=== PATIENT | male | born 1970 | race Caucasian/White ===

== ENCOUNTER 2017-08-07 20:34 | Emergency (ER) | payer OTHER ==
[~2017-08-07] VITALS: Ht 177.8 cm; Wt 88.6 kg
[~2017-08-07 20:34] MED LIST: NAPROSYN500 MG PO; NO HOME MEDICATIONS
[2017-08-07 20:38] VITALS: TEMP 97.6
[2017-08-07] MEDS ORDERED: MUCINEX 60600 MG/TA1 PO (20:46)
[2017-08-07] MEDS ORDERED: MUCINEX D 12001 TER PO (20:47)
[2017-08-07 20:55] LABS: BASO % 0.4 % (0.0-2.0); EOS # 0.2 (0.0-0.7); GRAN # 4.6 (1.4-6.5); GRAN % 57.8 % (42.2-75.2); HEMATOCRIT 43.9 % (42.0-52.0); HEMOGLOBIN 15.6 g/dl (13.5-18.0); LYMPH # 2.6 (1.2-3.4); LYMPH % 32.8 % (20.0-51.0); MEAN CELL VOLUME 91 fl (80.0-100.0); MEAN CORPUSCULAR HEMOGLOBIN 32 pg (27.0-31.0); MEAN CORPUSCULAR HGB CONC 36 g/dl (33.0-37.0); MEAN PLATELET VOLUME 9.5 fl (7.4-10.4); MONO # 0.5 (0.1-0.6); MONO % 6.7 % (1.7-9.3); PLATELET COUNT 247 K/mm3 (130-400); RED BLOOD COUNT 4.83 M/mm3 (4.20-5.60); REDCELL DISTRIBUTION WIDTH-CV 11.9 % (11.5-14.5)
[2017-08-07 21:02] LABS: PROTHROMBIN TIME 11.2 SECONDS (9.7-12.8)
[2017-08-07 21:05] LABS: ALANINE AMINOTRANSFERASE 47 U/L (21-72); ALBUMIN 5.1 gm/dL (3.5-5.0); ALKALINE PHOSPHATASE 51 U/L (50-136); ANION GAP 11 mmol/L (7-16); AST,SGOT 26 U/L (15-37); BILIRUBIN,TOTAL 0.6 mg/dL (0.0-1.0); BLOOD UREA NITROGEN 14 mg/dL (9-20); CARBON DIOXIDE 28 mmol/L (22-30); CHLORIDE 103 mmol/L (98-107); CREATININE, serum 1.07 mg/dL (0.66-1.25); GLUCOSE 94 mg/dL (74-106); PARTIAL THROMBOPLASTIN TIME 32.4 SECONDS (26.0-37.0); POTASSIUM 4.2 mmol/L (3.4-5.0); SODIUM 142 mmol/L (137-145); TOTAL PROTEIN 8.1 gm/dL (6.4-8.2)
[2017-08-07] MEDS ORDERED: AMBIEN 5MG TABLE5 MG PO (21:05)
[2017-08-07] MEDS ORDERED: ULTRAM 50MG TAB50 MG PO (21:06)
[2017-08-07] MEDS ORDERED: CLARITIN 1010 MG/TAB PO (21:07)
[2017-08-07 21:16] LABS: TROPONIN-I < 0.012 ng/mL (0.000-0.034)
[2017-08-07 21:39] VITALS: BP 157/98; PULSE 58
== END 2017-08-07 22:07 | disposition home or self-care (01) ==
LOC: COL.ER 20:34
PROVIDERS: Emergency Medicine
DX: R07.89 Other chest pain (principal); R05 Cough